=== PATIENT | female | born 1975 | race Caucasian/White ===

== ENCOUNTER 2022-06-12 16:41 | Emergency (ER) | payer BC, OTHER ==
[2022-06-12 17:57] LABS: ESTIMATED GFR 107 mL/min (>60)
== END 2022-06-12 18:15 | disposition home or self-care (01) ==
LOC: JP.ED 16:41
DX: F10.10 Alcohol abuse, uncomplicated (principal); F17.210 Nicotine dependence, cigarettes, uncomplicated; Z86.16 Personal history of COVID-19; Z20.822 Contact with and (suspected) exposure to COVID-19; Y90.8 Blood alcohol level of 240 mg/100 ml or more
CPT/HCPCS: 36415; 80053; 80143; 80179; 80305-QW; 80307; 85025; 99283; U0002

== ENCOUNTER 2022-06-14 20:08 | Emergency (ER) | payer OTHER | END 2022-06-14 21:45 | disposition left against medical advice (07) | LOC: JP.ED 20:08 | DX: Z53.21 Procedure and treatment not carried out due to patient leaving prior to being seen by health care provider (principal) ==